=== PATIENT | female | born 1965 | race Caucasian/White ===

== ENCOUNTER → 2018-06-11 08:37 | Outpatient (CLI) | payer MEDICAID, SELFPAY ==
[2018-06-11 08:44] VITALS: BP 150/96; PULSE 71; RESP 18; TEMP 35.3; O2SAT 96
[2018-06-11] MEDS: Midazolam 2 MG/2 ML VIAL IVP ×2 (09:15→09:24)
[2018-06-11] MEDS: Lactated Ringers 1,000 ML 80 ML IV (09:17)
[2018-06-11 09:27] VITALS: BP 162/101; PULSE 69; RESP 15; O2SAT 99
--- NOTE | 2018-06-11 09:30 | PDOC.PAIN_ITS ---
Date of Service: 06/11/18 Time of Service: 09:28 [facility] Procedure Note Cervical Epidural Steroid Injection GRAHAM DEJESUS has been [facility] for interlaminar cervical epidural steroid injection. COMMENTS: She has had this procedure in the past and states that she needs IV sedation to make it through this procedure again. DX: Cervical radiculopathy Patient was interviewed and the medical record reviewed. There were no medical , pharmacologic, radiographic or other structural contraindications to attempting fluoroscopically guided epidural steroid injection. Risks and expected side effects as well as potential benefit of the procedure were reviewed and voiced concerns addressed. The printed consent form was signed and witnessed. Standard time-out procedure was performed. The patient was placed in the prone position on the fluoroscopy table and automated blood pressure cuff and pulse oximeter applied. The skin entry point for entering the epidural space by a midline C7-T1 interlaminar approach was identified under fluoroscopy and marked. Following thorough Chlorhexadine preparation of the skin and draping and 1% lidocaine infiltration of the skin entry point and subcutaneous tissues, an 18 gauge Tuohy needle was placed under fluoroscopic guidance and with loss of resistance technique into the epidural space. Upon needle placement and loss of resistance there were no paresthesiae or return of blood or CSF through the needle. 1ml of Omnipaque 240 were injected with clear epidural spread in the A/P, oblique views. 15mg of preservative-free Dexamethasone with 1ml sterile normal saline were injected through the needle with no unusual discomfort expressed. The needle was removed without difficulty. A bandage was placed. Vital signs were stable throughout the procedure and were as recorded in the docflowsheet by the nursing staff. If given, dosages of intravenous drugs for anxiolysis and analgesia were documented in MAR. Follow up plans and appointments were discussed. Post procedure instruction was given as documented in nursing documentation and having met discharge criteria and was discharged from the [facility]. COMMENTS: If this procedure is found to be helpful, it can be completed up to 3 times per 12 months. CC: Vanessa Moise
--- NOTE | 2018-06-11 09:39 | DI.REPORT_ITS ---
SYMPTOM/DIAGNOSIS: CERVICAL RADICULOPATHY C-ARM FLUOROSCOPY: Fluoroscopy Time: 31 sec 16.79 Fluoroscopy was provided for guidance with cervical spine [facility] injection. Please see procedure note for details.
[2018-06-11] MEDS: Dexamethasone Sod. Phos./Pres-Free 10 MG/ML VIAL IJ (09:49)
[2018-06-11] MEDS: Omnipaque 240 MG/ML 50 ML BTL IJ (09:49)
[2018-06-11 09:50] VITALS: BP 162/92
== END ==
PROVIDERS: PCP Nurse Practitioner Family; Visit Provider Preventive Medicine Occupational Medicine
DX: M54.12 Radiculopathy, cervical region (principal)
CPT/HCPCS: 62321; 99152; 99153; 72040; J2250; Q9967

== ENCOUNTER 2019-09-14 08:55 | Outpatient (CLI) | payer MEDICAID, SELFPAY ==
[2019-09-14 10:19] LABS: Anion Gap 6.4 mmol/L (3-11); BUN 21 mg/dL (7-18); CO2 30.6 mmol/L (21.0-32.0); CREATININE 0.78 mg/dL (0.55-1.02); Calcium 9.4 mg/dL (8.5-10.1); Calculated LDL 136 mg/dL; Chloride 104 mmol/L (98-107); Cholesterol 208 mg/dL (50-200); Glucose 121 mg/dL (70-100); HDL Cholesterol 55 mg/dL (40-60); Sodium 141 mmol/L (136-145); Triglyceride 86 mg/dL (30-150)
== END 2019-09-14 09:15 ==
LOC: LBO 09:22 → NCHCO 09:29
PROVIDERS: PCP Nurse Practitioner Family; Visit Provider Nurse Practitioner Family
DX: I10 Essential (primary) hypertension (principal); Z13.220 Encounter for screening for lipoid disorders
CPT/HCPCS: 36415; 80048; 80061

== ENCOUNTER 2019-10-13 02:39 | Outpatient (CLI) | payer MEDICAID, SELFPAY ==
--- NOTE | 2019-10-13 10:00 | NS.NUTBLAN_ITS ---
DESCRIPTION: Viki Jimenez presents for medical nutrition therapy for newly diagnosed diabetes. She denies cardiovascular risks at this time. MONITORING: A1c self report above 6.5. She monitors blood sugars fasting 104- 117 taking Metformin 500mg once a day. NUTRITION: Viki believes her elevated A1c is from tasting too many maple products that she is making. She states she believes she eats well. Has cereal and whole milk or 1/2 large bagel with cream cheese for breakfast; mid=afternoon has a sandwich or chicken with salad; states her weakness is pasta but has cut back to 1x/week. She denies eating much sweet food except as stated above. Weight stable past 15 years. PHYSICAL ACTIVITY: Active spring through fall, but is more sedentary with reading, quilting, cleaning, woodworking during the winter. States she needs a knee replacement and does not feel safe walking outside in the winter. STRESS: Denies unusual stress or symptoms of depression. She admits she sleeps poorly for past 18 years; brain does not shut off; medication treatment makes her groggy. ASSESSMENT/INTERVENTION: Explained diagnosis of diabetes and importance of early, intensive intervention to prevent progression of the disease. Discussed fasting blood sugar in pre-diabetes range with low dose medication. Viki has already made changes to decrease her carbohydrate intake. Reviewed diabetes food guide with focus on adequate vegetables and healthy grains for fiber. Discussed monitoring of blood sugar for meaning; suggested testing 2 hours after largest carbohydrate meal to assess how high blood sugars go for her. Explained action of medication as well as administration and dosing. Viki believes it is her sleep that is contributing to her hyperglycemia and it has been that way. Attempted discussion regarding techniques for racing thoughts but she voices resignation a her pattern. Encouraged increased physical activity through the winter of 10 minute walk; walking in place, indoor cardiovascular exercise like dance; use of stairs. The knee continues to be the limiting factor. PLAN: Viki will: ask PCP about Metformin dosing focus on fiber foods using the food label attempt some additional indoor physical activity every day as tolerated. She will be in touch as desired. Face to face 40 minutes
== END 2019-10-13 02:59 ==
PROVIDERS: PCP Nurse Practitioner Family; Visit Provider Dietitian, Registered
DX: E11.9 Type 2 diabetes mellitus without complications (principal); Z79.84 Long term (current) use of oral hypoglycemic drugs; Z71.3 Dietary counseling and surveillance
CPT/HCPCS: 97802

== ENCOUNTER 2019-10-25 00:53 | Outpatient (CLI) | payer MEDICAID, SELFPAY ==
--- NOTE | 2019-10-25 13:11 | DI.MAMMO_ITS ---
EXAM: MG MAMMO SCREENING CLINICAL HISTORY: SCREENING, Z12.39. TECHNIQUE: Full field digital CC and MLO mammographic images were obtained with 3D tomosynthesis and utilizing computer aided detection (CAD). COMPARISON: [id number]. FINDINGS: Breast density: B Masses/Architectural Distortion: None seen. Microcalcifications: No suspicious pleomorphic-type calcifications are seen. Skin Thickening/Nipple Retraction: None. Axilla: Unremarkable. IMPRESSION: 1. BI-RADS category 1, negative. No significant interval change with no specific features of maligna ncy noted. 2. Unless there is more urgent need, screening mammography is recommended, as per [employer] guidelines. BI-RADS Cat 1 - Negative Breast Density - Category B - Scattered areas of fibroglandular density A negative radiographic report should not delay biopsy if a dominant or clinically suspicious mass is present. Up to ten percent of cancers are not identified on mammography. A negative report may reinforce clinical impression. Adenosis and dense breasts may obscure an underlying neoplasm. False positive reports average 6 to 10%. Patient will receive a letter notifying them of these results.
== END 2019-10-25 01:13 ==
PROVIDERS: PCP Nurse Practitioner Family; Visit Provider Nurse Practitioner Family
DX: Z12.31 Encounter for screening mammogram for malignant neoplasm of breast (principal)
CPT/HCPCS: 77063; 77067

== ENCOUNTER 2020-06-08 03:06 | Outpatient (CLI) | payer MEDICAID, SELFPAY ==
[2020-06-08 11:27] LABS: Ferritin 70 ng/mL (8-252)
== END 2020-06-08 03:26 ==
PROVIDERS: PCP Nurse Practitioner Family; Visit Provider Nurse Practitioner
DX: M25.50 Pain in unspecified joint (principal)
CPT/HCPCS: 36415; 82728

== ENCOUNTER 2020-10-27 03:50 | Outpatient (CLI) | payer MEDICAID, SELFPAY ==
--- NOTE | 2020-10-27 | DI.MAMMO_ITS ---
EXAM: MG MAMMO SCREENING CLINICAL HISTORY: SCREENING,Z12.39 TECHNIQUE: Bilateral full field digital CC and MLO mammographic images were obtained with 3D tomosyn thesis and utilizing computer aided detection (CAD). COMPARISON: Available for comparison. FINDINGS: Masses/Architectural Distortion: None seen. Microcalcifications: No suspicious pleomorphic-type are seen. Skin Thickening/Nipple Retraction: None. IMPRESSION: 1. No significant interval change with no specific features of malignancy noted. 2. Unless there is more urgent need, screening mammography is recommended, as per [employer] guidelines. BI-RADS Category 1 - Negative Breast Density - Category B - Scattered areas of fibroglandular density Breast density category C or D implies that the patient has dense breast tissue. Dense breast tissue is very common and is not abnormal but dense breast tissue can make it harder to find cancer on a ma mmogram. Also, dense breast tissue may increase their breast cancer risk. This information about the result of the mammogram report was provided to the patient to raise their awareness. Use this report when you speak with the patient about their risks for breast cancer, which includes their family hist ory. At that time, you may recommend for more screening tests (Ultrasound or MRI) as they might be us eful based on their risk. A negative radiographic report should not delay biopsy if a dominant or clinically suspicious mass is present. Up to ten percent of cancers are not identified on mammography. A negative report may reinforce clinical impression. Adenosis and dense breasts may obscure an underlying neoplasm. False positive reports average 6 to 10%. Patient will receive a letter notifying them of these results.
== END 2020-10-27 04:10 ==
PROVIDERS: PCP Nurse Practitioner Family; Visit Provider Nurse Practitioner Family
DX: Z12.31 Encounter for screening mammogram for malignant neoplasm of breast (principal)
CPT/HCPCS: 77063; 77067

== ENCOUNTER 2020-11-07 21:59 | Outpatient (REF) | payer MEDICAID, SELFPAY ==
[2020-11-07 18:06] LABS: Anion Gap 8.1 mmol/L (3-11); BUN 30 mg/dL (7-18); CO2 28.9 mmol/L (21.0-32.0); CREATININE 0.77 mg/dL (0.55-1.02); Calcium 9.5 mg/dL (8.5-10.1); Chloride 105 mmol/L (98-107); Glucose 133 mg/dL (74-106); Potassium 3.9 mmol/L (3.5-5.1); Sodium 142 mmol/L (136-145)
== END 2020-11-07 22:19 ==
LOC: NCHCN 21:59
PROVIDERS: PCP Nurse Practitioner Family; Visit Provider Nurse Practitioner Family
DX: E11.9 Type 2 diabetes mellitus without complications (principal)
CPT/HCPCS: 80048

== ENCOUNTER 2022-01-25 19:18 | Outpatient (REF) | payer MEDICAID, SELFPAY ==
[2022-01-25 20:06] LABS: Anion Gap 8.8 mmol/L (3-11); BUN 22 mg/dL (7-18); CO2 27.2 mmol/L (21.0-32.0); CREATININE 0.8 mg/dL (0.55-1.02); Calcium 9.4 mg/dL (8.5-10.1); Chloride 103 mmol/L (98-107); Glucose 123 mg/dL (74-106); Potassium 4.2 mmol/L (3.5-5.1); Sodium 139 mmol/L (136-145)
== END 2022-01-25 19:19 | disposition home or self-care (01) ==
LOC: NCHCN 19:18
PROVIDERS: PCP Nurse Practitioner Family; Visit Provider Nurse Practitioner Family
DX: I10 Essential (primary) hypertension (principal)
CPT/HCPCS: 80048

== ENCOUNTER → 2022-08-21 00:59 | Outpatient (CLI) | payer MEDICAID, SELFPAY ==
--- NOTE | 2022-08-21 08:17 | DI.MAMMO_ITS ---
Exam(s) MAMMO SCREENING EXAM: MAMMO SCREENING CLINICAL HISTORY: SCREENING, Z12.39 TECHNIQUE: Mammograms were interpreted according to the usual protocol including computer analysis w [employer] CAD system, tomosynthesis and C-view imaging. COMPARISON: FINDINGS: The breasts are of moderate density with fairly symmetrical distribution of fibroglandular tissue. N o dominant mass or clumped microcalcification is identified in either breast. The current examinatio n is compared with previous examinations including October 2020 and there has been no gross interval change in appearance in comparison with the prior studies. IMPRESSION: No specific evidence of malignancy at this time. Routine screening examinations are suggested at yea rly intervals due to the family history of breast carcinoma. BI-RADS Category 1 - Negative Breast Density - Category B - Scattered areas of fibroglandular density
== END ==
PROVIDERS: PCP Nurse Practitioner Family; Visit Provider Nurse Practitioner Family
DX: Z12.31 Encounter for screening mammogram for malignant neoplasm of breast (principal)
CPT/HCPCS: 77063; 77067

== ENCOUNTER 2023-02-27 17:59 | Outpatient (REF) | payer MEDICAID, SELFPAY ==
[2023-02-27 20:04] LABS: Hemoglobin A1C 6.2 % (<5.7)
[2023-02-27 20:15] LABS: ALT 31 U/L (14-59); AST 18 U/L (15-37); Alkaline Phosphatase 120 U/L (46-116); Anion Gap 9.1 mmol/L (3-11); BUN 22 mg/dL (7-18); Bilirubin, Total 0.3 mg/dL (0.2-1.0); CO2 27.9 mmol/L (21.0-32.0); CREATININE 0.8 mg/dL (0.55-1.02); Calcium 9.3 mg/dL (8.5-10.1); Calculated LDL 104 mg/dL (<100); Chloride 103 mmol/L (98-107); Cholesterol 194 mg/dL (<200); Estimated GFR 85.89 (mL/min/1.73m2); Glucose 122 mg/dL (74-106); HDL Cholesterol 53 mg/dL (40-60); Potassium 4.1 mmol/L (3.5-5.1); Sodium 140 mmol/L (136-145); Total Protein 7.4 g/dL (6.4-8.2); Triglyceride 186 mg/dL (<150)
== END 2023-02-27 18:00 | disposition home or self-care (01) ==
LOC: NCHCN 17:59
PROVIDERS: PCP Nurse Practitioner Family; Visit Provider Nurse Practitioner Family
DX: E11.9 Type 2 diabetes mellitus without complications (principal); B35.1 Tinea unguium
CPT/HCPCS: 80053; 80061; 83036

== ENCOUNTER 2023-04-03 14:19 | Outpatient (REF) | payer MEDICAID, SELFPAY ==
[2023-04-03 19:28] LABS: ALT 36 U/L (14-59); AST 20 U/L (15-37); Albumin 4.4 g/dL (3.4-5.0); Alkaline Phosphatase 113 U/L (46-116); Bilirubin, Direct 0.1 mg/dL (0.0-0.2); Bilirubin, Total 0.5 mg/dL (0.2-1.0); Total Protein 7.1 g/dL (6.4-8.2)
== END 2023-04-03 14:20 | disposition home or self-care (01) ==
LOC: NCHCN 14:19
PROVIDERS: PCP Nurse Practitioner Family; Visit Provider Nurse Practitioner Family
DX: B35.1 Tinea unguium (principal); Z79.899 Other long term (current) drug therapy
CPT/HCPCS: 80076

== ENCOUNTER 2023-05-02 13:02 | Outpatient (REF) | payer MEDICAID, SELFPAY ==
[2023-05-02 15:36] LABS: ALT 43 U/L (14-59); AST 22 U/L (15-37); Alkaline Phosphatase 105 U/L (46-116); Bilirubin, Direct 0.1 mg/dL (0.0-0.2); Bilirubin, Total 0.4 mg/dL (0.2-1.0); Total Protein 7.1 g/dL (6.4-8.2)
== END 2023-05-02 13:03 | disposition home or self-care (01) ==
LOC: NCHCN 13:02
PROVIDERS: PCP Nurse Practitioner Family; Visit Provider Nurse Practitioner Family
DX: B35.1 Tinea unguium (principal); Z79.899 Other long term (current) drug therapy
CPT/HCPCS: 80076

== ENCOUNTER 2024-03-31 13:51 | Outpatient (REF) | payer MEDICAID, SELFPAY ==
[2024-03-31 16:19] LABS: ALT 45 U/L (14-59); AST 21 U/L (15-37); Albumin 4.3 g/dL (3.4-5.0); Alkaline Phosphatase 93 U/L (46-116); Anion Gap 9.3 mmol/L (3-11); BUN 28 mg/dL (7-18); Bilirubin, Total 0.5 mg/dL (0.2-1.0); CO2 27.7 mmol/L (21.0-32.0); CREATININE 0.7 mg/dL (0.55-1.02); Calcium 9.2 mg/dL (8.5-10.1); Chloride 104 mmol/L (98-107); Estimated GFR 100.19 (mL/min/1.73m2); FREE T4 0.98 ng/dL (0.76-1.46); Glucose 99 mg/dL (74-106); Magnesium 1.9 mg/dL (1.8-2.4); Potassium 4.3 mmol/L (3.5-5.1); Sodium 141 mmol/L (136-145); TSH 1.22 uIU/Ml (0.36-3.74)
[2024-03-31 16:57] LABS: Calculated LDL 100 mg/dL (<100); Cholesterol 194 mg/dL (<200); HDL Cholesterol 79 mg/dL (40-60); Triglyceride 77 mg/dL (<150)
[2024-03-31 17:40] LABS: COMMENT (LAB VIEW ONLY) 101.97 mg/dL; Microalb ug/mg Crea 8.9 ug/mg Cr
== END 2024-03-31 13:52 | disposition home or self-care (01) ==
LOC: NCHCN 13:51
PROVIDERS: Visit Provider Nurse Practitioner Family
DX: E11.9 Type 2 diabetes mellitus without complications (principal); I10 Essential (primary) hypertension; Z68.30 Body mass index [BMI] 30.0-30.9, adult; R25.2 Cramp and spasm
CPT/HCPCS: 80053; 80061; 82043; 82570; 83036; 83735; 84439; 84443

== ENCOUNTER → 2024-04-15 03:52 | Outpatient (CLI) | payer MEDICAID, SELFPAY ==
--- NOTE | 2024-04-15 | DI.RAD_ITS ---
Exam(s) XR CERVICAL SPINE COMP 4-5V EXAM: XR CERVICAL SPINE COMP 4-5V CLINICAL HISTORY: CERVICAL RADICULOPATHY M54.12. TECHNIQUE: 2D digital imaging was performed. COMPARISON: No exams were available for comparison FINDINGS: Five views. No evidence of fracture, listhesis, nor offset of the spinal laminar line. There is moderate disc sp evgeny narrowing at C5-6 level and mild disc space narrowing at C4-5 and C6-7 levels. There are Luschka joint osteophytes evident at the C6-7 level seen on oblique views. There are no cervical ribs. Og e multilevel moderate facet arthropathy is noted. Bone density normal. No osseous lesions. IMPRESSION: Degenerative disc disease. If clinically indicated follow-up MRI can be performed given the history of radiculopathy. DATA REPOSITORY: RADIATION DOSE DELIVERED:
--- NOTE | 2024-04-15 08:52 | DI.MAMMO_ITS ---
Exam(s) MAMMO SCREENING EXAM: MAMMO SCREENING CLINICAL HISTORY: SCREENING MAMMO FOR BREAST CANCER Z12.39. TECHNIQUE: Bilateral full field digital CC and MLO mammographic images were obtained with 3D tomosyn thesis and utilizing computer aided detection (CAD). COMPARISON: Prior mammograms were reviewed. FINDINGS: There has been no significant change in the appearance and distribution of the fibroglandular tissue. There are no CAD designations. There are no new spiculated masses nor malignant appearing microcalcification groups. There is no significant architectural distortion nor skin thickening-retraction. IMPRESSION: No radiographic evidence of malignancy. BI-RADS Category 1 - Negative Breast Density - Category B - Scattered areas of fibroglandular density Breast density Category C or D implies that the patient has dense breast tissue. Dense breast tissue can make it harder to find cancer on a mammogram. Dense breast tissue is also associated with an incr eased risk of breast cancer. This information about the result of the mammogram report was provided to the patient to raise their awareness. Use this report when you speak with the patient about their risks for breast cancer, which includes their family history. At that time, you may recommend additional screening tests (Ultrasoun d or MRI) as these tests may add significant information. A negative radiographic report should not delay biopsy if a dominant or clinically suspicious mass is present. Up to ten percent of cancers are not identified on mammography. A negative report may reinforce clinical impression. Adenosis and dense breasts may obscure an underlying neoplasm. False positive reports average 6 to 10%. Patient will receive a letter notifying them of these results.
== END ==
PROVIDERS: PCP Nurse Practitioner Family; Visit Provider Nurse Practitioner Family
DX: Z12.31 Encounter for screening mammogram for malignant neoplasm of breast (principal); M54.12 Radiculopathy, cervical region
CPT/HCPCS: 77063; 77067; 72050

== ENCOUNTER → 2024-06-08 01:35 | Outpatient (CLI) | payer MEDICAID, SELFPAY ==
--- NOTE | 2024-06-08 | DI.MRI_ITS ---
Exam(s) MR CERVICAL SPINE WO EXAM: MR CERVICAL SPINE WO CLINICAL HISTORY: CERVICAL RADICULOPATHY,M54.12 TECHNIQUE: Multiplanar multisequence MRI of the cervical spine was performed without intravenous con trast. COMPARISON: CR XR CERVICAL SPINE COMP 4-5V from 04/15/2024 FINDINGS: BONES: Vertebral body heights are maintained. Alignment is normal. Bone marrow signal intensity is wi thin normal limits. CERVICAL CORD: Craniovertebral junction is unremarkable. The cervical cord is normal size and signal intensity. SOFT TISSUES: Unremarkable. C2-3: Minimal central disc protrusion. No evidence of neural foraminal narrowing. No significant cornelius tral canal stenosis. C3-4: Small endplate osteophytes. Mild concentric disc bulging. Small central disc protrusion. Mil d right neural foraminal narrowing. No significant central canal stenosis. C4-5: Small endplate osteophytes. Minimal disc bulging. No significant neural foraminal narrowing. No significant central canal stenosis. C5-6: Mild loss of disc height. Mild circumferential osteophytes.Moderate right neural foraminal wilbur rowing. No significant central canal stenosis. C6-7: Minimal disc bulging. Mild bilateral neural foraminal narrowing. No significant central canal stenosis. C7-T1: Mild loss of disc height. Small endplate osteophytes. Minimal disc bulging. No evidence of neural foraminal narrowing. No significant central canal stenosis. IMPRESSION: Degenerative disc changes, greatest at C5-6 with osteophytes causing moderate right neural foraminal encroachment. Small central disc protrusions at C2-3 and C3-4. DATA REPOSITORY:
== END ==
PROVIDERS: PCP Nurse Practitioner Family; Visit Provider Nurse Practitioner Family
DX: M54.12 Radiculopathy, cervical region (principal); M50.11 Cervical disc disorder with radiculopathy, high cervical region; M50.121 Cervical disc disorder at C4-C5 level with radiculopathy; M50.122 Cervical disc disorder at C5-C6 level with radiculopathy; M50.123 Cervical disc disorder at C6-C7 level with radiculopathy
CPT/HCPCS: 72141

== ENCOUNTER 2025-05-04 11:28 | Outpatient (REF) | payer MEDICAID, SELFPAY ==
[2025-05-04 16:21] LABS: BUN 22 mg/dL (7-18); CREATININE 0.6 mg/dL (0.55-1.02); Calcium 9.6 mg/dL (8.5-10.1); Chloride 103 mmol/L (98-107); Estimated GFR 103.33 (mL/min/1.73m2); Glucose 123 mg/dL (74-106); Potassium 4.5 mmol/L (3.5-5.1); Sodium 141 mmol/L (136-145)
[2025-05-04 17:40] LABS: Microalb ug/mg Crea 6.2 ug/mg Cr
== END 2025-05-04 11:29 | disposition home or self-care (01) ==
LOC: NCHCN 11:28
PROVIDERS: PCP Nurse Practitioner Family; Visit Provider Family Medicine
DX: E11.9 Type 2 diabetes mellitus without complications (principal)
CPT/HCPCS: 80048; 82043; 82570

== ENCOUNTER 2025-07-21 03:00 | Outpatient (CLI) | payer MEDICAID, SELFPAY ==
--- NOTE | 2025-07-21 | DI.MAMMO_ITS ---
Exam(s) MAMMO SCREENING EXAM: MAMMO SCREENING CLINICAL HISTORY: SCREENING,Z12.31. TECHNIQUE: Bilateral full field digital CC and MLO mammographic images were obtained with 3D tomosynthesis and utilizing computer aided detection (CAD). COMPARISON: Prior mammograms were reviewed. FINDINGS: There has been no significant change in the appearance and distribution of the fibroglandular tissue. Small benign-appearing nodule posteriorly in the right breast seen on the CC view is unchanged from 2019 and has appearance of benign intramammary lymph node. There are no new spiculated masses nor new malignant appearing microcalcification groups. There is no significant architectural distortion nor skin thickening-retraction. IMPRESSION: No radiographic evidence of malignancy. Stable benign findings. BI-RADS Category 1 - Negative Breast Density - Category B - There are scattered areas of fibroglandular density. Breast density Category C or D implies that the patient has dense breast tissue. Dense breast tissue can make it harder to find cancer on a mammogram. Dense breast tissue is also associated with an increased risk of breast cancer. This information about the result of the mammogram report was provided to the patient to raise their awareness. Use this report when you speak with the patient about their risks for breast cancer, which includes their family history. At that time, you may recommend additional screening tests (Ultrasound or MRI) as these tests may add significant information. A negative radiographic report should not delay biopsy if a dominant or clinically suspicious mass is present. Up to ten percent of cancers are not identified on mammography. A negative report may reinforce clinical impression. Adenosis and dense breasts may obscure an underlying neoplasm. False positive reports average 6 to 10%. Patient will receive a letter notifying them of these results.
== END 2025-07-21 03:20 ==
PROVIDERS: PCP Nurse Practitioner Family; Visit Provider Family Medicine
DX: Z12.31 Encounter for screening mammogram for malignant neoplasm of breast (principal); R92.323 Mammographic fibroglandular density, bilateral breasts
CPT/HCPCS: 77063; 77067